=== PATIENT | female | born 1950 | race Caucasian/White ===

== ENCOUNTER → 2017-12-07 | Outpatient (CLI) | payer BC ==
--- NOTE | 2017-12-08 07:57 | MAMMOGRAPHY REPORT ---
BILATERAL DIGITAL SCREENING MAMMOGRAM TOMOSYNTHESIS WITH CAD: 12/07/2017 CLINICAL HISTORY: Routine screening. Patient has no complaints. TECHNIQUE: The study was acquired using full field digital technology and interpreted from soft copy. Breast tomosynthesis in addition to standard 2D mammography was performed. Current study was also ev aluated with a Computer Aided Detection (CAD) system. COMPARISON: Comparison is made to exams dated: 02/23/2016 mammogram, 09/01/2015 mammogram, 02/27/2015 mammogram, 02/19/2015 mammogram, 02/18/2014 mammogram, and 02/16/2012 mammogram - [facility]. BREAST COMPOSITION: The tissue of both breasts is heterogeneously dense, which may obscure small mass es. FINDINGS: The parenchymal pattern is similar to prior mammograms. There are a few scattered benign-appearing c alcifications. No developing mass, architectural distortion or cluster of suspicious microcalcificat ions is seen in either breast. IMPRESSION: ACR BI-RADS CATEGORY 2: BENIGN There is no mammographic evidence of malignancy. A 1 year screening mammogram is recommended.( [id number]) The patient will receive written notification of the results. Some breast cancers are not detected with mammography. A negative mammographic report should not marvin y biopsy if a clinically suggestive mass is present. Jossy Gorman M.D. 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
== END | disposition home or self-care (01) ==
LOC: C.MAMM 11:58
PROVIDERS: ATTEND Internal Medicine
DX: Z12.31 Encounter for screening mammogram for malignant neoplasm of breast (principal)